=== PATIENT | female | born 1990 | race Caucasian/White ===

== ENCOUNTER 2020-09-18 00:01 | Emergency (ER) | payer BC, SELFPAY ==
[2020-09-18 00:02] VITALS: BP 145/94; PULSE 80; RESP 20; TEMP 37; O2SAT 100; BMI 28.1
--- NOTE | 2020-09-18 00:11 | XR_ITS ---
PROCEDURE: XR CHEST 2V CLINICAL HISTORY: soa COVID 19 positive, shortness of air with wheezing COMPARISON: No exams were available for comparison FINDINGS: The cardiomediastinal silhouette and pulmonary vascularity are within normal limits. The lungs are clear without infiltrates, suspicious nodules, or pleural effusions. No acute bony abnormalities. IMPRESSION: No acute findings. Dictated by: Dariel Quinteros MD 09/18/2020 07:04 Dariel Quinteros MD in [place] 09/18/2020 07:04
[2020-09-18 00:25] LABS: Chloride 102 mmol/L (98-107); Sodium 139 mmol/L (136-145)
[2020-09-18 00:26] LABS: Potassium 3.3 mmoL/L (3.5-5.1)
[2020-09-18 00:27] LABS: Basophils % 0.9 % (0.1-2.0); Eosinophils # 0.1 K/mm3 (0.0-0.4); Eosinophils % 1.9 % (0.1-12.0); Hematocrit 38.7 % (37.0-47.0); Hemoglobin 12.7 g/dL (12.2-16.2); Lymphocytes # 1.8 K/mm3 (0.7-4.5); Lymphocytes % 43.4 % (10-50); Mean Corpuscular HGB Conc 32.7 g/dL (31.8-35.4); Mean Corpuscular Volume 85.4 fl (81-99); Monocytes # 0.4 K/mm3 (0.1-1.0); Monocytes % 8.9 % (1.7-9.3); Neutrophils # 1.8 K/mm3 (1.8-7.8); Neutrophils % 44.9 % (37.0-80.0); Platelet Count 200 K/mm3 (142-424); Red Blood Count 4.53 M/mm3 (4.20-5.40); Red Cell Distribution Width 12.9 % (11.5-17.5); White Blood Count 4.1 K/mm3 (4.8-10.8)
[2020-09-18 00:28] LABS: Alanine Aminotransferase 22 U/L (12-78); Albumin Level 4.5 g/dl (3.5-5.0); Albumin/Globulin Ratio 1.6 (1.1-1.8); Alkaline Phosphatase 59 U/L (38-126); Anion Gap 9.3 mEq/L (5-15); Aspartate Amino Transferase 31 U/L (14-36); Bilirubin,Total 0.5 mg/dl (0.2-1.3); Blood Urea Nitrogen 11 mg/dl (7-17); Calcium 9.1 mg/dl (8.4-10.2); Carbon Dioxide 31 mmol/L (22.0-30.0); Creatinine Clearance Estimated 131 mL/min (50-200); Estimated Glomerular Filt Rate 84 ml/min (>60); GFR (African American) 101 ML/MIN (>60); Globulin 2.9 g/dL (1.3-3.2); Glucose 134 mg/dl (74-100); Total Protein,Serum 7.4 g/dl (6.3-8.2)
[2020-09-18 00:34] LABS: C-Reactive Protein 1.7 mg/L (0-4)
--- NOTE | 2020-09-18 00:38 | HMH.EDSOB ---
ED Disposition Clinical Impression: Asthma with exacerbation Qualifiers: Asthma severity: moderate Asthma persistence: unspecified Qualified Code(s): J45.901 - Unspecified asthma with (acute) exacerbation Disposition: Home, Self-Care Condition on Discharge: Good Instructions: DI for Shortness of Breath Additional Instructions: call pcp this am for follow up Referrals: Mukul Alfaro MD [Primary Care Provider] - - Critical Care Critical Care Time: No Attestation: On 09/18/20, the high probability of a clinically significant, sudden or life threatening deterioration of the following system(s) required my full and direct attention, intervention and personal management. The time I documented below is in addition to time spent performing reported procedures but includes the following listed in this critical care notation. Medical Decision Making - Medical Records Medical records reviewed: Yes: I reviewed the patient's medical records. - Jose Inquiry Pt receiving controlled substance: No Vital Signs: 09/18/20 00:02 09/18/20 01:17 09/18/20 01:28 Temperature 98.6 F Temperature Source Oral Pulse Rate [Right] 80 76 77 Respiratory Rate 20 16 16 Blood Pressure [Right Arm] 145/94 H 141/93 H 144/87 H Blood Pressure Mean [Right Arm] 111 109 106 Blood Pressure Source [Right Arm] Automatic Cuff Blood Pressure Position [Right Arm] Sitting 02 Sat by Pulse Oximetry 100 100 100 Oxygen Delivery Method Room Air Room Air Room Air 09/18/20 02:20 Temperature Temperature Source Pulse Rate [Right] 80 Respiratory Rate 16 Blood Pressure [Right Arm] 123/79 Blood Pressure Mean [Right Arm] 93 Blood Pressure Source [Right Arm] Blood Pressure Position [Right Arm] 02 Sat by Pulse Oximetry 99 Oxygen Delivery Method Room Air - Lab Data Lab results reviewed: Yes: I reviewed the patient's lab results. Lab Results 09/18/20 00:09: WBC 4.1 L, RBC 4.53, Hgb 12.7, Hct 38.7, MCV 85.4, MCH 28.0, MCHC 32.7, RDW 12.9, Plt Count 200, MPV 9.0, Neut % (Auto) 44.9, Lymph % (Auto) 43.4, Weld % (Auto) 8.9, Eos % (Auto) 1.9, Baso % (Auto) 0.9, Neut # (Auto) 1.8, Lymph # (Auto) 1.8, Weld # (Auto) 0.4, Eos # (Auto) 0.1, Baso # (Auto) 0.0 09/18/20 00:09: Sodium 139, Potassium 3.3 L, Chloride 102, Carbon Dioxide 31 H, Anion Gap 9.3, BUN 11, Creatinine 0.80, Estimated Creat Clear 131, Estimated GFR 84, Est GFR ( Amer) 101, Glucose 134 H, Calcium 9.1, Total Bilirubin 0.5, AST 31, ALT 22, Alkaline Phosphatase 59, C-Reactive Protein 1.7, Total Protein 7.4, Albumin 4.5, Globulin 2.9, Albumin/Globulin Ratio 1.6 09/18/20 00:09: Serum HCG, Qual Negative 09/18/20 00:09: SARS-CoV-2 IgG Ab (Rapid) Negative, SARS-CoV-2 IgM Ab (Rapid) Negative 09/18/20 00:09: ESR 15 Result diagrams: 09/18/20 00:09 09/18/20 00:09 Orders (Tests/Meds): ED MEDICATIONS Generic Name Dose Route Start Last Admin Trade Name Freq PRN Reason Stop Dose Admin Sodium Chloride 1,000 mls @ 999 mls/hr 09/18/20 00:15 09/18/20 00:14 Sod Chlor 0.9% 1000ml Bag IV 09/18/20 01:15 999 mls/hr .Q1H1M CIELO Administration Discontinued Medications Generic Name Dose Route Start Last Admin Trade Name Freq PRN Reason Stop Dose Admin Dexamethasone Sodium Phosphate 10 mg 09/18/20 00:11 09/18/20 00:14 Dexamethasone 4mg/Ml 1ml Vial IV 09/18/20 00:12 10 mg ONCE ONE Administration Epinephrine HCl 0.3 mg 09/18/20 01:12 09/18/20 01:14 Epinephrine 1 Mg/Ml Ampul SQ 09/18/20 01:13 0.3 mg ONCE ONE Administration ORDERS Category Date Time Status XR chest 2V Stat Exams 09/18/20 00:11 Taken XR soft tissue neck Stat Exams 09/18/20 00:41 Taken Full Resp Panel w/COVID ([facility]) Routine Lab 09/18/20 00:09 Received - Radiology Data #1 Image(s): Chest, Other (soft tissue neck ) Image Reviewed: Yes I reviewed the patient's radiology image Preliminary Findings: Abnormal (sl changes soft tissue neck ) - Reevaluation(s) Time: 03:07 Reevalua
--- NOTE | 2020-09-18 00:41 | XR_ITS ---
PROCEDURE: XR SOFT TISSUE NECK CLINICAL INDICATION: wheezing COMPARISON: No exams were available for comparison FINDINGS: Normal alignment. No prevertebral soft tissue swelling or subglottic narrowing. The epiglottis has an unremarkable appearance. IMPRESSION: Negative soft tissues neck. Dictated by: Dariel Quinteros MD 09/18/2020 07:03 Dariel Quinteros MD in [place] 09/18/2020 07:03
[2020-09-18 00:43] LABS: HCG Qualitative, Serum Negative (Negative)
[2020-09-18 00:55] LABS: Coronavirus 19 IgG Antibody Negative (Negative); Coronavirus 19 IgM Antibody Negative (Negative); Erythrocyte Sedimentation Rate 15 mm/hr (0-20)
--- NOTE | 2020-09-18 01:08 | PC.NURSE ---
Josué, Pharmacist recommends epi 0.3-0.5 of 1:1000 SQ
[2020-09-18 01:17] VITALS: BP 141/93; PULSE 76; RESP 16; O2SAT 100
[2020-09-18 01:28] VITALS: BP 144/87; PULSE 77; RESP 16; O2SAT 100
--- NOTE | 2020-09-18 01:29 | PC.NURSE ---
Post SQ Epi Pt continues to have inspiratory and exspiratory wheezing, it has inproved greatly, but still auscultated.
[2020-09-18 01:43] LABS: Adenovirus,PCR Not Detected (NotDetected); Bordetella Pertussis Not Detected (NotDetected); Chlamydophila Pneumoniae, PCR Not Detected (NotDetected); Coronavirus 229E Not Detected (NotDetected); Coronavirus NL63 Not Detected (NotDetected); Coronavirus OC43 Not Detected (NotDetected); Coronovirus HKU1,PCR Not Detected (NotDetected); Human Metapneumovirus Not Detected (NotDetected); Influenza A, PCR Not Detected (NotDetected); Influenza AH1, 2009 Not Detected (NotDetected); Influenza AH1, PCR Not Detected (NotDetected); Influenza AH3,PCR Not Detected (NotDetected); Influenza B, PCR Not Detected (NotDetected); Mycoplasma Pneumoniae, PCR Not Detected (NotDetected); Parainfluenza 1, PCR Not Detected (NotDetected); Parainfluenza 2, PCR Not Detected (NotDetected); Parainfluenza 3, PCR Not Detected (NotDetected); Parainfluenza 4, PCR Not Detected (NotDetected); Respiratory Syncytial Virus Not Detected (NotDetected); Rhinovirus/Enterovirus Not Detected (NotDetected)
--- NOTE | 2020-09-18 02:19 | PC.NURSE ---
On Admission pt could only whisper, she is now able to speak normal.
[2020-09-18 02:20] VITALS: BP 123/79; PULSE 80; RESP 16; O2SAT 99
[2020-09-18 03:13] VITALS: BP 126/74; PULSE 80; RESP 16; TEMP 37; O2SAT 100
[2020-09-18 03:25] LABS: Coronavirus 19, PCR Detected (NotDetected)
--- NOTE | 2020-09-18 03:29 | PC.NURSE ---
Pt was contacted and notified of Positive Covid test and was instructed to self quarantine
== END 2020-09-18 03:16 | disposition home or self-care (01) ==
PROVIDERS: Emergency Provider Emergency Medicine; PCP Family Medicine
DX: J45.901 Unspecified asthma with (acute) exacerbation (principal); U07.1 COVID-19
CPT/HCPCS: 70360; 71046; 80053; 84703; 85025; 85651; 86140; 86328; 87581; 87633; 87798; 96365; 96372; 96375; 99283

== ENCOUNTER → 2020-10-19 12:00 | Outpatient (CLI) | payer BC, SELFPAY ==
--- NOTE | 2020-10-19 12:07 | XR_ITS ---
PROCEDURE: XR CHEST 2V Referring Doctor: Yasmin Menendez Patient Age:29Y CLINICAL HISTORY: SOB, COVID-19 positive 1 month ago COMPARISON: CR XR CHEST 2V from 09/18/2020 FINDINGS: PA and lateral chest performed today with no change when compared to 09/18/2020 the the cardiomediastinal silhouette and pulmonary vascularity are within normal limits. The lungs are clear without infiltrates, suspicious nodules, or pleural effusions. No acute bony abnormalities. IMPRESSION: Lungs clear. Nothing definitely acute. No significant new findings Dictated by: Scar Dejesus MD 10/19/2020 13:10 Scar Dejesus MD in [place] 10/19/2020 13:10
== END ==
PROVIDERS: PCP Nurse Practitioner Family; Visit Provider Nurse Practitioner Family
DX: R06.02 Shortness of breath (principal); U07.1 COVID-19
CPT/HCPCS: 71046

== ENCOUNTER → 2021-12-25 08:30 | Outpatient (CLI) | payer BC, SELFPAY ==
--- NOTE | 2021-12-25 08:35 | US_ITS ---
FINAL REPORT CLINICAL HISTORY: NNAUSA, DYSPEPSIA, UPER ABD. PAIN FINDINGS: Sonographic images of the abdomen were obtained. The liver has an unremarkable appearance with normal echogenicity. The gallbladder has an unremarkable appearance without evidence of gallstones. There is no evidence of biliary ductal dilatation. The common hepatic duct measures 2 mm, which is within normal limits. Limited images of the pancreas are unremarkable. The spleen size is normal. The right kidney measures 10.3 cm in length. The left kidney measures 9.8 cm in length. There is normal renal echogenicity. There is no evidence of hydronephrosis. The aorta has an unremarkable appearance. Limited images of the inferior vena cava are unremarkable. IMPRESSION: Unremarkable abdominal ultrasound with no acute abnormality identified. Reviewed, Interpreted and Dictated by Gordon Dorsey III, MD Transcribed by Joie Hurtado Authenticated by Gordon Dorsey III, MD on 12/25/2021 11:08:15 AM [facility]
== END ==
PROVIDERS: PCP Nurse Practitioner Family; Visit Provider Nurse Practitioner Family
DX: R10.10 Upper abdominal pain, unspecified (principal); R11.0 Nausea; R10.13 Epigastric pain
CPT/HCPCS: 76700

== ENCOUNTER 2022-08-31 11:55 | Emergency (ER) | payer BC, SELFPAY ==
[2022-08-31 13:46] VITALS: BP 156/105; PULSE 85; RESP 17; TEMP 36.7; O2SAT 100; BMI 28.3
[2022-08-31 14:04] VITALS: BP 152/98; PULSE 103; RESP 20; O2SAT 100
--- NOTE | 2022-08-31 14:23 | PC.NURSE ---
ED MD AT BEDSIDE FOR EVALUATION
--- NOTE | 2022-08-31 14:24 | XR_ITS ---
PROCEDURE INFORMATION: Exam: XR Chest Exam date and time: 08/31/2022 2:39 PM Age: 31 years old Clinical indication: Cough and shortness of breath; Additional info: Conernfor pneumonia TECHNIQUE: Imaging protocol: Radiologic exam of the chest. Views: 1 view. COMPARISON: CR XR CHEST 2V 10/19/2020 12:09 PM FINDINGS: Lungs: There is an indeterminate opacity projected over the right upper lobe. Differential considerations include but not limited to developing pneumonia focal lesion or structure overlap. Evaluation with chest CT is recommended for better evaluation. Pleural spaces: Unremarkable. No pleural effusion. No pneumothorax. Heart/Mediastinum: Unremarkable. No cardiomegaly. Bones/joints: Unremarkable. IMPRESSION: There is an indeterminate opacity projected over the right upper lobe. Differential considerations include but not limited to developing pneumonia focal lesion or structure overlap. Evaluation with chest CT is recommended for better evaluation.
--- NOTE | 2022-08-31 14:28 | PC.NURSE ---
XR AT BEDSIDE
[2022-08-31 14:30] VITALS: BP 151/91; PULSE 102; RESP 19; O2SAT 100
[2022-08-31 15:00] VITALS: BP 140/96; PULSE 91; RESP 16; O2SAT 99
[2022-08-31 15:30] VITALS: BP 144/98; PULSE 98; RESP 16; O2SAT 100
[2022-08-31 15:33] LABS: HCG Qualitative, Serum Negative (Negative)
[2022-08-31 16:34] VITALS: BP 135/89; PULSE 80; RESP 17; TEMP 36.7; O2SAT 99
--- NOTE | 2022-08-31 20:52 | HMH.EDGENADL ---
Discharge Plan Disposition Patient Disposition: Home, Self-Care Condition: Fair Prescriptions Prescriptions: New doxycycline hyclate 100 mg tablet 100 mg PO BID 5 Days Qty: 10 0RF Referrals Follow up/Referrals: Yasmin Menendez APRN [Primary Care Provider] - See instructions Activity Restrictions/Add. Instructions Additional Instructions/Restrictions: Recommend that you follow-up with your PCP in order to get a repeat chest x-ray to ensure that this right upper lobe area clears otherwise it will need a CT to evaluate. Clinical Impressions Clinical Impression: Asthma with exacerbation, Pneumonia Instructions Patient Instructions: DI for Pneumonia -- Adult Discharge ED Provider: Kiran Shahid General Adult HPI General Chief complaint: Upper Respiratory Infection Stated complaint: Cough, congestion, SOA, BA, Chills Time Seen by Provider: 08/31/22 12:10 Mode of Arrival: Ambulatory Limitations: No Limitations Description of Symptoms (Recalled from ER Triage Doc. by RN): PT +FLU, HAS ASTHMA. REPORTS COUGH AND SHORTNESS OF BREATH History of Present Illness HPI narrative: Patient is a 31-year-old female who presents with concern for influenza. She says she was diagnosed with the flu 5 days ago. She says that she has been doing okay but she has a history of asthma and felt like she was more wheezy and her cough was getting worse so she wanted to come in for evaluation. She also says that she is little bit more short of breath. She has not been having any increase in sputum production. Denies any chest pain. Denies abdominal pain. Denies any nausea or vomiting. Related Data Previous Rx's Medication Instructions Recorded doxycycline hyclate 100 mg tablet 100 mg PO BID 5 days #10 tabs 08/31/22 Allergies Allergy/AdvReac Type Severity Reaction Status Date / Time pneumococcal vaccine Allergy Severe Unknown Verified 09/18/20 00:45 [From PNEUMOVAX 23] allergy reaction morphine [MORPHINE] Allergy Mild Verified 09/18/20 00:45 cefdinir Allergy Verified 09/18/20 00:45 Sulfa (Sulfonamide Allergy Verified 09/18/20 00:45 Antibiotics) PFSH PFSH Social History Smoking Status: Never smoker alcohol intake: never current occupational status: unemployed Travel in the last 8 weeks: None ROS Obtained: Yes All systems reviewed & no additional complaints except as documented A 14 point review of system was obtained and otherwise negative except per HPI Physical Exam General General appearance: alert and in no apparent distress Head Head exam: atraumatic, normocephalic and normal inspection Eye Eye exam: Present normal appearance, PERRL and EOMI ENT ENT exam: Present normal exam, normal oropharynx, mucous membranes moist, TM's normal bilaterally and normal external ear exam Neck Neck exam: Present normal inspection, full ROM and trachea midline; Absent meningismus or lymphadenopathy Chest Chest inspection: Present normal inspection and symmetric chest wall rise; Absent tenderness Respiratory Respiratory exam: Present normal lung sounds bilaterally and wheezes; Absent respiratory distress Expanded Respiratory Exam Location: Left: wheezes, Right: wheezes, Upper: wheezes and Lower: wheezes Cardiovascular Cardiovascular exam: Present regular rate and normal rhythm; Absent JVD Abdominal Exam Abdominal exam: Present soft and normal bowel sounds; Absent distention, tenderness or guarding Extremities Exam Extremities exam: Present normal inspection, full ROM and normal capillary refill; Absent calf tenderness Back Exam Back exam: Present normal inspection; Absent tenderness Neurological Exam Neurological exam: Present alert and oriented X3 Psychiatric Psychiatric exam: Present normal affect and normal mood Skin Skin exam: Present warm, dry, intact and normal color Lymphatic Lymphatic Findings: no adenopathy Medical Decision Making Medical Records Medical records reviewed: Yes I rev
== END 2022-08-31 16:40 | disposition home or self-care (01) ==
LOC: UTC 11:58 → ER 12:24
PROVIDERS: Emergency Provider Student in an Organized Health Care Education/Training Program; PCP Nurse Practitioner Family
DX: J45.901 Unspecified asthma with (acute) exacerbation (principal); J18.9 Pneumonia, unspecified organism; Z79.899 Other long term (current) drug therapy
CPT/HCPCS: 71045; 84703; 94640; 96365; 96375; 99284; J3475

== ENCOUNTER → 2022-09-16 10:17 | Outpatient (CLI) | payer BC, SELFPAY ==
--- NOTE | 2022-09-16 10:22 | XR_ITS ---
FINAL REPORT CLINICAL HISTORY: PNEUMONIA OF RT UPPER LOBE, sob, cough COMPARISON: 08/31/2022 FINDINGS: 2 views of the chest were obtained . The heart is normal in size. The mediastinum is within normal limits. There has been interval resolution of right upper lobe pneumonia. There is no pneumothorax. Osseous structures are unremarkable. IMPRESSION: No acute cardiopulmonary process. Reviewed, Interpreted and Dictated by Juanito Calderon MD Transcribed by Sherron Pagan Authenticated and [facility]
== END ==
PROVIDERS: PCP Nurse Practitioner Family; Visit Provider Nurse Practitioner Family
DX: J18.9 Pneumonia, unspecified organism (principal)
CPT/HCPCS: 71046

== ENCOUNTER 2023-07-10 16:55 | Emergency (ER) | payer BC, SELFPAY ==
[2023-07-10 16:57] VITALS: BP 141/91; PULSE 68; RESP 16; TEMP 36.7; O2SAT 100; BMI 25.5
[2023-07-10 17:15] VITALS: BP 140/97; PULSE 76; RESP 18; TEMP 36.7; O2SAT 99
--- NOTE | 2023-07-10 17:55 | PC.NURSE ---
Dr. Cm at [facility] for pt eval
[2023-07-10 17:57] LABS: Coronavirus 19, PCR Not Detected (NotDetected); Influenza A, PCR Not Detected (NotDetected); Influenza B, PCR Not Detected (NotDetected)
--- NOTE | 2023-07-10 17:59 | XR_ITS ---
PROCEDURE INFORMATION: Exam: XR Chest Exam date and time: 07/10/2023 6:33 PM Age: 32 years old Clinical indication: Cough TECHNIQUE: Imaging protocol: Radiologic exam of the chest. Views: 2 views. COMPARISON: CR XR CHEST 2V 09/16/2022 10:35 AM FINDINGS: Lungs: Lungs are clear. No consolidation. Pleural spaces: No pleural effusion. No pneumothorax. Heart/Mediastinum: Cardiomediastinal silhouette is normal. Bones/joints: No acute abnormality. IMPRESSION: No acute cardiopulmonary disease.
--- NOTE | 2023-07-10 17:59 | HMH.EDGENADL ---
Discharge Plan Disposition Patient Disposition: Home, Self-Care Chief Complaint: Upper Respiratory Infection Prescriptions Prescriptions: No Action doxycycline hyclate 100 mg tablet 100 mg PO BID 5 Days Qty: 10 0RF Referrals Follow up/Referrals: Yasmin Menendez APRN [Primary Care Provider] - See instructions Clinical Impressions Clinical Impression: Laryngitis, Acute viral syndrome, Asthma exacerbation Discharge ED Provider: Chau Cm General Adult HPI General Chief complaint: Upper Respiratory Infection Stated complaint: Abd Pain Bronchitis Time Seen by Provider: 07/10/23 17:45 History of Present Illness HPI narrative: Patient is a 32-year-old female with past medical history of asthma who presents emergency department for evaluation of cough and shortness of breath. Patient has had waxing waning symptoms for last 2 weeks however has been particularly worse over the last 48 hours, refractory to at home inhaler. Patient has lost her voice. No other acute complaints at this time. Related Data Previous Rx's Medication Instructions Recorded doxycycline hyclate 100 mg tablet 100 mg PO BID 5 days #10 tabs 08/31/22 Allergies Allergy/AdvReac Type Severity Reaction Status Date / Time pneumococcal vaccine Allergy Severe Unknown Verified 09/18/20 00:45 [From PNEUMOVAX 23] allergy reaction morphine [MORPHINE] Allergy Mild Verified 09/18/20 00:45 cefdinir Allergy Verified 09/18/20 00:45 Sulfa (Sulfonamide Allergy Verified 09/18/20 00:45 Antibiotics) [facility] Disclaimer: The information contained in this section may have been updated after the patient was seen, as this information can be updated by other users. Social History Smoking Status: Never smoker alcohol intake: never current occupational status: unemployed Travel in the last 8 weeks: None ROS Obtained: Yes Systems reviewed as appropriate & no additional complaints except as documented Physical Exam General General appearance: alert and in no apparent distress Head Head exam: atraumatic and normocephalic Eye Eye exam: Present PERRL and EOMI ENT ENT exam: Present mucous membranes moist Neck Neck exam: Present normal inspection Chest Chest inspection: Present normal inspection and symmetric chest wall rise Respiratory Respiratory exam: Present other (Scattered expiratory wheezing); Absent respiratory distress Cardiovascular Cardiovascular exam: Present regular rate and normal rhythm Abdominal Exam Abdominal exam: Present soft Extremities Exam Extremities exam: Present normal inspection Neurological Exam Neurological exam: Present alert Psychiatric Psychiatric exam: Present normal affect Skin Skin exam: Present warm and dry Medical Decision Making Jose Inquiry Pt receiving controlled substance: No Vital Signs: 07/10/23 17:15 07/10/23 16:57 07/10/23 18:03 Temperature 98.1 F 98.0 F Temperature Source Oral Oral Pulse Rate 76 71 Pulse Rate [Left] 68 Respiratory Rate 18 16 Blood Pressure 140/97 H 141/91 H Blood Pressure [Right Arm] 141/91 H Blood Pressure Mean 108 Blood Pressure Mean [Right Arm] 107 Blood Pressure Source Automatic Cuff 02 Sat by Pulse Oximetry 99 100 97 Oxygen Delivery Method Room Air 07/10/23 18:26 Temperature Temperature Source Pulse Rate 69 Pulse Rate [Left] Respiratory Rate Blood Pressure 135/90 Blood Pressure [Right Arm] Blood Pressure Mean 108 Blood Pressure Mean [Right Arm] Blood Pressure Source 02 Sat by Pulse Oximetry 98 Oxygen Delivery Method Lab Data Lab Results 07/10/23 17:11: SARS-CoV-2 (PCR) Not detected, Influenza A Untype (PCR) Not detected, Influenza Type B (PCR) Not detected Orders (Tests/Meds): ED MEDICATIONS Discontinued Medications Generic Name Dose Route Start Last Admin Trade Name Freq PRN Reason Stop Dose Admin Albuterol/Ipratropium 6 ml 07/10/23 17:58 07/10/23 18:29 Ip
[2023-07-10 18:03] VITALS: BP 141/91; PULSE 71; O2SAT 97
[2023-07-10 18:26] VITALS: BP 135/90; PULSE 69; O2SAT 98
[2023-07-10 19:41] VITALS: BP 102/54; PULSE 71; RESP 15; TEMP 36.5; O2SAT 98
== END 2023-07-10 19:44 | disposition home or self-care (01) ==
PROVIDERS: Emergency Provider Emergency Medicine; PCP Nurse Practitioner Family
DX: J45.901 Unspecified asthma with (acute) exacerbation (principal); J04.0 Acute laryngitis; B34.9 Viral infection, unspecified
CPT/HCPCS: 71046; 87636; 99284

== ENCOUNTER 2023-09-21 10:16 | Emergency (ER) | payer BC, SELFPAY ==
[2023-09-21 11:20] VITALS: BP 146/99; PULSE 100; RESP 18; TEMP 37.2; O2SAT 98; BMI 25.5
--- NOTE | 2023-09-21 11:22 | EXP.UTC ---
Discharge Plan Disposition Patient Disposition: Home, Self-Care Condition: Good Prescriptions Prescriptions: New amoxicillin [amoxicillin] 875 mg tablet 875 mg PO Q12H Qty: 20 0RF [id number] [Bromfed DM] 2-30-10 mg/5 mL Syrup 5 ml PO Q6H PRN (Reason: Cough) Qty: 240 0RF methylprednisolone 4 mg Tablets,Dose Pack 4 mg PO DIRECTED Qty: 21 0RF No Action albuterol sulfate 90 mcg/actuation aerosol powdr breath activated 2 inh inhalation Q4-6H PRN (Reason: Wheezing) albuterol sulfate 2.5 mg/0.5 mL solution for nebulization 5 mg inhalation Q6H PRN (Reason: Wheezing) levocetirizine [Xyzal] 5 mg tablet 5 mg PO DAILY Mucinex DM 30-600 mg tablet extended release 12 hr 1 tab PO Q12H fluticasone propionate [Flonase Allergy Relief] 50 mcg/actuation spray,suspension 1 spray intranasal DAILY PRN Rx Instructions: administer into each nostril Referrals Follow up/Referrals: Yasmin Menendez APRN [Primary Care Provider] - See instructions Activity Restrictions/Add. Instructions Additional Instructions/Restrictions: Drink plenty of fluids. Take tylenol or ibuprofen for pain or fever. Take the medications as directed. Follow up with your regular doctor. GO TO THE ER FOR ANY WORSENING SYMPTOMS Clinical Impressions Clinical Impression: Acute bronchitis, Sinusitis Instructions Patient Instructions: DI for Sinusitis, Sinusitis, Acute Bronchitis, DI for Acute Bronchitis Discharge ED Provider: Mitesh Boothe [facility] General Stated complaint: cough congestion vomiting chest tightness Time Seen by Provider: 09/21/23 11:22 Related Data Home Medications Medication Instructions Recorded Confirmed albuterol sulfate 2.5 mg/0.5 mL 5 mg inhalation Q6H PRN Wheezing 07/16/23 09/21/23 solution for nebulization albuterol sulfate 90 mcg/actuation 2 inh inhalation Q4-6H PRN Wheezing 07/16/23 09/21/23 breath activated powder inhaler dextromethorphan-guaifenesin 30 1 tab PO Q12H 07/16/23 09/21/23 mg-600 mg tablet extended [id number] hr (Mucinex DM) fluticasone propionate 50 1 spray intranasal DAILY PRN 07/16/23 07/16/23 mcg/actuation nasal spray,suspension (Flonase Allergy Relief) levocetirizine 5 mg tablet (Xyzal) 5 mg PO DAILY 07/16/23 07/16/23 Previous Rx's Medication Instructions Recorded amoxicillin 875 mg tablet 875 mg PO Q12H #20 tabs 09/21/23 [id number] 5 ml PO Q6H PRN Cough #240 mL 09/21/23 2 mg-30 mg-10 mg/5 mL oral syrup (Bromfed DM) methylprednisolone 4 mg tablets in 4 mg PO DIRECTED #21 tabs 09/21/23 a dose pack Allergies Allergy/AdvReac Type Severity Reaction Status Date / Time pneumococcal vaccine Allergy Severe Unknown Verified 09/21/23 11:40 [From PNEUMOVAX ] allergy reaction morphine [MORPHINE] Allergy Mild Verified 09/21/23 11:40 cefdinir Allergy Verified 09/21/23 11:40 Sulfa (Sulfonamide Allergy Verified 09/21/23 11:40 Antibiotics) [facility] Disclaimer: The information contained in this section may have been updated after the patient was seen, as this information can be updated by other users. Social History Smoking Status: Never smoker alcohol intake: never current occupational status: unemployed Travel in the last 8 weeks: None ROS Obtained: Yes All systems reviewed & no additional complaints except as documented Constitutional Constitutional: Reports poor appetite Eyes Eyes: Reports system reviewed and no additional complaints, except as documented ENT Ears, Nose, Mouth, and Throat: Reports as per HPI Cardiovascular Cardiovascular: Reports system reviewed and no additional complaints, except as documented and Denies chest pain Respiratory Respiratory: Denies shortness of breath, Reports chest congestion, Reports cough, Denies stridor and Denies wheezing Gastrointestina
[2023-09-21 11:54] VITALS: BP 146/99; PULSE 100; RESP 18; TEMP 37.2; O2SAT 98
== END 2023-09-21 11:54 | disposition home or self-care (01) ==
PROVIDERS: Emergency Provider Nurse Practitioner Family; PCP Nurse Practitioner Family
DX: J20.9 Acute bronchitis, unspecified (principal); J01.90 Acute sinusitis, unspecified; R11.2 Nausea with vomiting, unspecified; R07.89 Other chest pain; R05.9 Cough, unspecified; R09.89 Other specified symptoms and signs involving the circulatory and respiratory systems
CPT/HCPCS: 99204; 99212; G0463

== ENCOUNTER 2023-10-02 12:47 | Emergency (ER) | payer BC, SELFPAY ==
[2023-10-02] VITALS (10 sets, daily range): BP systolic 117–147; BP diastolic 52–87; PULSE 60–88; RESP 20; TEMP 36.8; O2SAT 97–100; BMI 27.4
--- NOTE | 2023-10-02 13:00 | PC.NURSE ---
pt was given a pillow laying in bed with at
--- NOTE | 2023-10-02 13:07 | HMH.EDGENADL ---
Discharge Plan Disposition Patient Disposition: Home, Self-Care Prescriptions Prescriptions: New promethazine 25 mg tablet 25 mg PO Q6H PRN (Reason: nausea and vomiting) Qty: 20 0RF No Action dexamethasone sodium phosphate 4 mg/mL solution 4 mg IM ONCE Qty: 1 0RF guaifenesin [Mucinex] 600 mg tablet extended release 12hr 600 mg PO BID azithromycin [Zithromax Z-Teofilo] 250 mg tablet See Rx Instructions PO .COMPLEX Qty: 6 0RF Rx Instructions: For 250 mg dose pack: take 500 mg today (day 1), then 250 mg for 4 days (days 2-5) PO prednisone 20 mg tablet 20 mg PO BID 5 Days Qty: 10 0RF albuterol sulfate 2.5 mg/0.5 mL solution for nebulization 5 mg inhalation Q6H PRN (Reason: Wheezing) Qty: 30 1RF Xulane 150-35 mcg/24 hr patch weekly 1 patch transdermal WEEKLY Qty: 9 2RF Rx Instructions: apply once weekly for 3 weeks of a 4-week cycle albuterol sulfate 90 mcg/actuation aerosol powdr breath activated 2 inh inhalation Q4-6H PRN (Reason: Wheezing) Qty: 1 2RF levocetirizine [Xyzal] 5 mg tablet 5 mg PO DAILY fluticasone propionate [Flonase Allergy Relief] 50 mcg/actuation spray,suspension 1 spray intranasal DAILY PRN Rx Instructions: administer into each nostril amoxicillin [amoxicillin] 875 mg tablet 875 mg PO Q12H Qty: 20 0RF rtyksfqhqhvfekg-uhsboakuv-JB [Bromfed DM] 2-30-10 mg/5 mL Syrup 5 ml PO Q6H PRN (Reason: Cough) Qty: 240 0RF methylprednisolone 4 mg Tablets,Dose Pack 4 mg PO DIRECTED Qty: 21 0RF Referrals Follow up/Referrals: Yasmin Menendez APRN [Primary Care Provider] - See instructions Clinical Impressions Clinical Impression: Acute epigastric pain, Nausea vomiting and diarrhea Instructions Patient Instructions: DI for Diarrhea and Traveler's Diarrhea -- Adult, DI for Diarrhea and Traveler's Diarrhea -- Child, DI for Nausea -- Adult, DI for Nausea -- Child Discharge ED Provider: Rashel Akhtar General Adult HPI <Rebecca Caicedo DO - Last Filed: 10/02/23 15:13> General Chief complaint: Nausea/Vomiting/Diarrhea Stated complaint: vomiting Time Seen by Provider: 10/02/23 12:50 History of Present Illness HPI narrative: This patient is a 32-year-old female who denies significant past medical history presenting to the emergency department for evaluation with concern for nausea, vomiting, and diarrhea since last night. She states that it started approximately 4 hours after eating dinner out. Emesis is nonbloody and nonbilious, and diarrhea is nonbloody. States she is concerned that she is getting dehydrated because she is having muscle cramping. She reports some epigastric/upper abdominal pain, but she attributes this to having a cough over the last several weeks. She denies any fevers, chills, chest pain, shortness of breath, dysuria, polyuria, or abnormal vaginal discharge. She took Zofran at home without good improvement. Related Data Home Medications Medication Instructions Recorded Confirmed fluticasone propionate 50 1 spray intranasal DAILY PRN 07/16/23 09/24/23 mcg/actuation nasal spray,suspension (Flonase Allergy Relief) levocetirizine 5 mg tablet (Xyzal) 5 mg PO DAILY 07/16/23 09/24/23 guaifenesin 600 mg tablet, 600 mg PO BID 09/24/23 09/24/23 extended release 12 hr (Mucinex) Previous Rx's Medication Instructions Recorded amoxicillin 875 mg tablet 875 mg PO Q12H #20 tabs 09/21/23 lajnczmhdrgikbq-qrlcnmryvhfogtq-GN 5 ml PO Q6H PRN Cough #240 mL 09/21/23 2 mg-30 mg-10 mg/5 mL oral syrup (Bromfed DM) methylprednisolone 4 mg tablets in 4 mg PO DIRECTED #21 tabs 09/21/23 a dose pack albuterol sulfate 2.5 mg/0.5 mL 5 mg inhalation Q6H PRN Wheezing 09/24/23 solution for nebulization #30 ea albuterol sulfate 90 mcg/actuation 2 inh inhalation Q4-6H PRN 09/24/23 breath activated powder inhaler Wheezing #1 ea azithromycin 250 mg tablet See Rx Instructions PO .COMPLEX #6 09/24/23 (Zithromax Z-Pa
[2023-10-02 14:01] LABS: Basophils # 0.1 K/mm3 (0-0.2); Basophils % 0.5 % (0.1-2.0); Eosinophils # 0.1 K/mm3 (0.0-0.4); Eosinophils % 0.8 % (0.1-12.0); Hematocrit 42.1 % (37.0-47.0); Hemoglobin 14.4 g/dL (12.2-16.2); Lymphocytes # 2.8 K/mm3 (0.7-4.5); Lymphocytes % 15.9 % (10-50); Mean Corpuscular HGB Conc 34.2 g/dL (31.8-35.4); Mean Corpuscular Hemoglobin 28.9 pg (27.0-31.2); Mean Corpuscular Volume 84.5 fl (81-99); Mean Platelet Volume 8.7 fl (7.4-10.4); Monocytes # 0.6 K/mm3 (0.1-1.0); Monocytes % 3.4 % (1.7-9.3); Neutrophils # 13.8 K/mm3 (1.8-7.8); Neutrophils % 79.4 % (37.0-80.0); Platelet Count 284 K/mm3 (142-424); Red Blood Count 4.98 M/mm3 (4.20-5.40); Red Cell Distribution Width 13.2 % (11.5-17.5); White Blood Count 17.4 K/mm3 (4.8-10.8)
[2023-10-02 14:10] LABS: MANUAL DIFFERENTIAL MANUAL DIFFERENTIAL (MANUAL DIFF)
[2023-10-02 14:15] LABS: Alanine Aminotransferase 28 U/L (12-78); Albumin Level 4.9 g/dl (3.5-5.0); Albumin/Globulin Ratio 1.4 (1.1-1.8); Alkaline Phosphatase 54 U/L (38-126); Anion Gap 11.8 mEq/L (5-15); Aspartate Amino Transferase 36 U/L (14-36); Blood Urea Nitrogen 10 mg/dl (7-17); Calcium 8.9 mg/dl (8.4-10.2); Carbon Dioxide 27 mmol/L (22.0-30.0); Chloride 100 mmol/L (98-107); Estimated Glomerular Filt Rate 82 ml/min (>60); GFR (African American) 99 ML/MIN (>60); Globulin 3.6 g/dL (1.3-3.2); Glucose 107 mg/dl (74-100); Lipase 147 U/L (23-300); Potassium 3.8 mmoL/L (3.5-5.1); Sodium 135 mmol/L (136-145); Total Protein,Serum 8.5 g/dl (6.3-8.2)
[2023-10-02 14:24] LABS: Microscopic, Urine URINE MICROSCOPIC (MICROSCOPIC)
[2023-10-02 14:26] LABS: Appearance,Urine CLEAR (Clear); Bilirubin,Urine Negative (Negative); Blood, Urine Negative (Negative); Color,Urine YELLOW (Yellow); Glucose,Urine (UA) Negative (Negative); Ketones,Urine 1+ (Negative); Leukocyte Esterase,Urine Negative (Negative); Nitrate,Urine Negative (Negative); PH,Urine 7.5 (5.0-8.5); Protein,Urine Negative (Negative); Urobilinogen,Urine 0.2 EU/dl (0.2)
[2023-10-02 14:29] LABS: HCG Qualitative, Serum Negative (Negative)
--- NOTE | 2023-10-02 14:30 | CT_ITS ---
FINAL REPORT TECHNIQUE: After the administration of intravenous contrast, axial images were obtained through the abdomen and pelvis by computed tomography. The study was performed with techniques to keep radiation dose as low as reasonably achievable, (ALARA). Individual dose reduction techniques using automated exposure control or adjustment of mA and/or kV according to the patient's size were employed. CLINICAL HISTORY: epigastric/LUQ pain/N/V COMPARISON: None FINDINGS: Abdomen: The lung bases are clear. The liver parenchyma is homogeneous. The gallbladder is present. The spleen, pancreas, adrenals and kidneys appear unremarkable. The aorta is normal in caliber. There is no free fluid or adenopathy. Pelvis: The appendix is not identified. The urinary bladder is incompletely distended. The uterus is anteverted. There is no free fluid or adenopathy. IMPRESSION: No acute intra-abdominal process. Reviewed, Interpreted and Dictated by Duc Bertrand MD Transcribed by Jessica Gaines Authenticated and [facility]
[2023-10-02 14:37] LABS: Lymphocytes % 19 % (10-50); Monocytes % 3 % (2-9); Neutrophils % 76 % (42-76); Platelet Estimate Normal; RBC Morphology Normal; Total Cells Counted 100
[2023-10-02 15:25] LABS: Bacteria,Urine Trace /lpf; Squamous Epithelial Cell,Urine Occasional #/hpf (0-5); WBC,Urine Occasional #/hpf (0-3)
--- NOTE | 2023-10-02 16:34 | PC.NURSE ---
call made to radiology for scan results, trade show specialist reports scan is waiting to be read .
--- NOTE | 2023-10-02 17:10 | PC.NURSE ---
rounded on pt no needs at this time,call light at bs
== END 2023-10-02 17:59 | disposition home or self-care (01) ==
PROVIDERS: Emergency Medicine; Emergency Provider Emergency Medicine; PCP Nurse Practitioner Family
DX: R10.13 Epigastric pain (principal); R11.2 Nausea with vomiting, unspecified; R19.7 Diarrhea, unspecified
CPT/HCPCS: 74177; 80053; 81001; 83690; 84703; 85007; 85025; 96361; 96374; 96375; 99285; J0131; J2405; Q9967

== ENCOUNTER 2024-02-11 16:15 | Outpatient (CLI) | payer BC, SELFPAY ==
--- NOTE | 2024-02-11 16:19 | XR_ITS ---
FINAL REPORT CLINICAL HISTORY: left thumb injury, decreased ROM COMPARISON: None FINDINGS: 2 views of the left thumb were obtained. There is no acute fracture or dislocation. The joints are unremarkable. Tissues are unremarkable. IMPRESSION: No acute bony abnormality. Reviewed, Interpreted and Dictated by Duc Bertrand MD Transcribed by RUTH Solis Authenticated and [facility]
== END 2024-02-11 23:59 | disposition home or self-care (01) ==
LOC: RAD 16:15
PROVIDERS: PCP Nurse Practitioner Family; Visit Provider Nurse Practitioner Family
DX: S69.92XA Unspecified injury of left wrist, hand and finger(s), initial encounter (principal); M25.642 Stiffness of left hand, not elsewhere classified
CPT/HCPCS: 73140

== ENCOUNTER 2024-08-22 08:36 | Emergency (ER) | payer BC, SELFPAY ==
[2024-08-22 08:49] VITALS: BP 163/93; PULSE 82; RESP 18; TEMP 36.8; O2SAT 97; BMI 26.9
--- NOTE | 2024-08-22 08:58 | EXP.UTC ---
Discharge Plan Disposition Patient Disposition: Home, Self-Care Condition: Good Prescriptions Prescriptions: New zvbbqotmbcvgctk-ftajquept-DR [Bromfed DM] 2-30-10 mg/5 mL Syrup 5 ml PO Q6H PRN (Reason: Cough) Qty: 240 0RF azithromycin [Zithromax] 250 mg tablet 250 mg PO UD DOSE PK Qty: 6 0RF Rx Instructions: Take two (2) tablets today, then one (1) tablet days #2 thru #5 methylprednisolone 4 mg Tablets,Dose Pack 4 mg PO DIRECTED 6 Days Qty: 21 0RF Rx Instructions: Take 1 pack as directed for 6 days No Action guaifenesin [Mucinex] 600 mg tablet extended release 12hr 600 mg PO BID PRN Referrals Follow up/Referrals: Yasmin Menendez APRN [Primary Care Provider] - See instructions Activity Restrictions/Add. Instructions Additional Instructions/Restrictions: Drink plenty of fluids. Take tylenol or ibuprofen for pain or fever. Take the medications as directed. Follow up with your regular doctor. GO TO THE ER FOR ANY WORSENING SYMPTOMS Clinical Impressions Clinical Impression: Sinusitis, Asthma exacerbation Stand Alone Forms Stand Alone Forms: Work/School Release Instructions Patient Instructions: Sinusitis, DI for Sinusitis Print Language Print Language: Polish Discharge ED Provider: Mitesh Boothe [facility] General Stated complaint: chest congestion Mode of Arrival: Ambulatory Source of Information: Patient Time Seen by Provider: 08/22/24 08:58 Description of Symptoms (Recalled from Triage Doc. by RN): SINUS INFECTION, ? BRONCHITIS HEENT Symptoms (Recalled from RN notes): Yes Resp Symptoms (Recalled from RN notes): Yes Skin Symptoms (Recalled from RN notes): No MS Symptoms (Recalled from RN notes): No Functional Status (Recalled from RN notes): WNL Related Data Home Medications ?Medication ?Instructions ?Recorded ?Confirmed guaifenesin 600 mg tablet, 600 mg PO BID PRN 02/11/24 07/09/24 extended release 12 hr (Mucinex) Previous Rx's ?Medication ?Instructions ?Recorded azithromycin 250 mg tablet 250 mg PO UD DOSE PK #6 tabs 08/22/24 (Zithromax) elzicoaiqrwnqen-gajujijwkrsvzfy-PR 5 ml PO Q6H PRN Cough #240 mL 08/22/24 2 mg-30 mg-10 mg/5 mL oral syrup (Bromfed DM) methylprednisolone 4 mg tablets in 4 mg PO DIRECTED 6 days #21 tabs 08/22/24 a dose pack Allergies Allergy/AdvReac Type Severity Reaction Status Date / Time pneumococcal vaccine Allergy Severe Unknown Verified 07/09/24 15:29 [From PNEUMOVAX 23] allergy reaction morphine [MORPHINE] Allergy Mild Verified 07/09/24 15:29 cefdinir Allergy Verified 07/09/24 15:29 Sulfa (Sulfonamide Allergy Verified 07/09/24 15:29 Antibiotics) Worker's Comp Is this a Worker's Comp case?: No [facility] Disclaimer: The information contained in this section may have been updated after the patient was seen, as this information can be updated by other users. Medical History Acute cough Decreased ROM of thumb Injury of left thumb Nausea vomiting and diarrhea Acute epigastric pain Sinusitis Acute bronchitis Asthma with exacerbation Pneumonia Acute viral syndrome Broken forearm left Surgical History H/O pelvic surgery broken pelvic bone Social History Smoking Status: Never smoker alcohol intake: never current occupational status: employed Travel in the last 8 weeks: None ROS Obtained: Yes All systems reviewed & no additional complaints except as documented Constitutional Constitutional: Reports poor appetite Eyes Eyes: Reports system reviewed and no additional complaints, except as documented ENT Ears, Nose, Mouth, and Throat: Reports as per HPI Cardiovascular Cardiovascular: Reports system reviewed and no additional complaints, except as documented and Denies chest pain Respiratory Respiratory: Denies shortness of breath, Reports chest congestion, Reports cough, Denies stridor and Denies wheezing Gastrointestinal Gastrointestingal: Reports system reviewed and no additional complaints, except as documented; Denies abdominal pain, diarrhea or vomiting Musculoskeletal Musculoskeletal: Reports system reviewed and no additional complaints, except as documented and Denies arthralgias Integumentary/Breasts Skin/Breast: Reports system reviewed and no additional complaints, except as documented and Denies rash Neurologic Neurologic: Denies paresthesias Allergic/Immunologic Allergic/Immunologic: Denies wheezing Physical Exam General General appearance: alert and in no apparent distress Eye Eye exam: Present normal appearance, PERRL and EOMI ENT ENT exam: Present mucous membranes moist and normal external ear exam Expanded ENT Exam External ear exam: Present normal external inspection TM/Canal exam: Bilateral TM: erythema and bulging Nose exam: Absent sinus tenderness Nasal speculum exam: Bilateral: normal Mouth exam: Present normal external inspection; Absent drooling Teeth exam: Present normal inspection Throat exam: Present tonsillar erythema and tonsillomegaly Neck Neck exam: Present normal inspection, full ROM and trachea midline; Absent tenderness, lymphadenopathy or thyromegaly Chest Chest inspection: Present normal inspection and symmetric chest wall rise; Absent tenderness or rash Respiratory Respiratory exam: Present normal lung sounds bilaterally; Absent respiratory distress, wheezes, stridor or accessory muscle use Cardiovascular Cardiovascular exam: Present regular rate, normal rhythm and normal heart sounds Abdominal Exam Abdominal exam: Present soft; Absent distention, tenderness, guarding, rebound or rigidity Extremities Exam Extremities exam: Present normal inspection, full ROM and normal capillary refill; Absent tenderness or calf tenderness Back Exam Back exam: Present normal inspection and full ROM; Absent tenderness Neurological Exam Neurological exam: Present alert and oriented X3 Psychiatric Psychiatric exam: Present normal affect and normal mood Skin Skin exam: Present warm, dry, intact and normal color Lymphatic Lymphatic Findings: no adenopathy Medical Decision Making Medical Records Medical records reviewed: No I reviewed the patient's medical records. Screening: Per USPSTF and CDC recommendations, given the prevalence of disease in our region, it is our hospital?s policy to screen for HIV and viral Hepatitis for all patients aged 18 and over and those with ongoing risk factors. Jose Inquiry Pt receiving controlled substance: No Vital Signs: 08/22/24 08:49 Temperature 98.3 F Temperature Source Oral Pulse Rate [Left Radial] 82 Respiratory Rate 18 Blood Pressure [Left Arm] 163/93 H Blood Pressure Mean [Left Arm] 116 02 Sat by Pulse Oximetry 97
[2024-08-22 09:09] VITALS: BP 163/93; PULSE 82; RESP 18; TEMP 36.8
== END 2024-08-22 09:13 | disposition home or self-care (01) ==
PROVIDERS: Emergency Provider Nurse Practitioner Family; PCP Nurse Practitioner Family
DX: J45.901 Unspecified asthma with (acute) exacerbation (principal)
CPT/HCPCS: 99213; G0381

== ENCOUNTER 2024-09-06 10:30 | Outpatient (CLI) | payer BC, SELFPAY ==
--- NOTE | 2024-09-06 10:44 | XR_ITS ---
FINAL REPORT TECHNIQUE: Cervical spine 5 views CLINICAL HISTORY: cervicogenic headaches COMPARISON: None FINDINGS: CERVICAL SPINE: The cervical vertebral bodies are well aligned. No acute fracture or dislocation is identified. No prevertebral soft tissue swelling is present. The disc spaces are preserved. IMPRESSION: Unremarkable cervical spine series. Reviewed, Interpreted and Dictated by Duc Bertrand MD Transcribed by Chelsi Carolina Authenticated and [facility]
[2024-09-06 11:29] LABS: Basophils # 0.1 K/mm3 (0-0.2); Basophils % 0.7 % (0.1-2.0); Eosinophils % 0.5 % (0.1-12.0); Hematocrit 38.7 % (37.0-47.0); Hemoglobin 13.4 g/dL (12.2-16.2); Lymphocytes # 2.4 K/mm3 (0.7-4.5); Lymphocytes % 29.2 % (10-50); Mean Corpuscular HGB Conc 34.5 g/dL (31.8-35.4); Mean Corpuscular Hemoglobin 28.9 pg (27.0-31.2); Mean Corpuscular Volume 83.7 fl (81-99); Mean Platelet Volume 8.9 fl (7.4-10.4); Monocytes # 0.5 K/mm3 (0.1-1.0); Monocytes % 6.3 % (1.7-9.3); Neutrophils # 5.1 K/mm3 (1.8-7.8); Neutrophils % 63.3 % (37.0-80.0); Platelet Count 227 K/mm3 (142-424); Red Blood Count 4.63 M/mm3 (4.20-5.40); Red Cell Distribution Width 12.6 % (11.5-17.5); White Blood Count 8.1 K/mm3 (4.8-10.8)
[2024-09-06 11:44] LABS: Estimated Glomerular Filt Rate 82 ml/min (>60); GFR (African American) 99 ML/MIN (>60)
[2024-09-06 12:12] LABS: Erythrocyte Sedimentation Rate 17 mm/hr (0-20)
[2024-09-06 13:28] LABS: Alanine Aminotransferase 12 U/L (12-78); Albumin Level 4.2 g/dl (3.5-5.0); Albumin/Globulin Ratio 1.6 (1.1-1.8); Alkaline Phosphatase 38 U/L (38-126); Anion Gap 14.2 mEq/L (5-15); Aspartate Amino Transferase 20 U/L (14-36); Bilirubin,Total 0.6 mg/dl (0.2-1.3); Blood Urea Nitrogen 9 mg/dl (7-17); Calcium 9.2 mg/dl (8.4-10.2); Carbon Dioxide 26 mmol/L (22.0-30.0); Chloride 105 mmol/L (98-107); Globulin 2.7 g/dL (1.3-3.2); Glucose 112 mg/dl (74-100); Magnesium 2.2 mg/dl (1.6-2.3); Potassium 4.2 mmoL/L (3.5-5.1); Sodium 141 mmol/L (136-145); Total Protein,Serum 6.9 g/dl (6.3-8.2); Uric Acid 2.9 mg/dl (2.5-6.2)
[2024-09-06 13:59] LABS: Thyroid Stimulating Hormone 1.86 uIU/mL (0.465-4.68)
[2024-09-06 14:18] LABS: Vitamin B12 220 pg/mL (239-931)
[2024-09-06 15:58] LABS: Ferritin 11.6 ng/ml (6.24-137)
[2024-09-07 05:29] LABS: RA Latex Turbid. <10.0 IU/mL (<14.0)
[2024-09-08 14:13] LABS: Antinuclear Antibodies, IFA Negative (.)
[2024-09-15 09:56] LABS: Anti-DNA (DS) Ab Charge YES; Anti-DNA (DS) Ab Qn 2; Antinuclear Antibodies (ANA) POSITIVE; Antiscleroderma-70 Abs Charge YES; Antiscleroderma-70 Antibodies <0.2; RNP Antibodies <0.2; RNP Antibodies Charge YES; Sjogren's Anti-SS-A <0.2; Sjogren's Anti-SS-A Ab Charge YES; Smith Antibodies Charge YES
[2024-09-15 09:57] LABS: Anti-Centromere B Abs Charge YES; Anti-Centromere B Antibodies <0.2; Anti-Jo-1 <0.2; Anti-Jo-1 Charge YES; Antichromatin Abs Charge YES; Antichromatin Antibodies <0.2; Sjogren's Anti-SS-B 5.8; Sjogren's Anti-SS-B Ab Charge YES
== END 2024-09-06 23:59 | disposition home or self-care (01) ==
LOC: LAB 10:31
PROVIDERS: PCP Nurse Practitioner Family; Visit Provider Nurse Practitioner Family
DX: M25.50 Pain in unspecified joint (principal); G44.86 Cervicogenic headache
CPT/HCPCS: 36415; 72050; 80050; 80053; 82607; 82728; 83735; 84443; 84550; 85025; 85651; 86038; 86225; 86235; 86431

== ENCOUNTER 2024-11-02 15:42 | Outpatient (CLI) | payer BC, SELFPAY ==
[2024-11-02 18:58] LABS: Vitamin B12 371 pg/mL (239-931)
== END 2024-11-02 23:59 | disposition home or self-care (01) ==
LOC: LAB.DROPOF 11-03 11:10
PROVIDERS: PCP Nurse Practitioner Family; Visit Provider Nurse Practitioner Family
DX: E53.8 Deficiency of other specified B group vitamins (principal); R30.0 Dysuria
CPT/HCPCS: 82607; 86340; 87086

== ENCOUNTER 2024-11-05 09:02 | Outpatient (CLI) | payer BC, SELFPAY ==
[2024-11-05 16:43] LABS: Microscopic, Urine URINE MICROSCOPIC (MICROSCOPIC)
[2024-11-05 18:44] LABS: Appearance,Urine CLEAR (Clear); Bilirubin,Urine Negative (Negative); Blood, Urine Negative (Negative); Color,Urine YELLOW (Yellow); Glucose,Urine (UA) Negative (Negative); Ketones,Urine TRACE (Negative); Leukocyte Esterase,Urine Negative (Negative); Nitrate,Urine Negative (Negative); Protein,Urine Negative (Negative); Urobilinogen,Urine 0.2 EU/dl (0.2)
[2024-11-05 19:06] LABS: Bacteria,Urine 1+ /lpf; Mucus,Urine 2+ /lpf
== END 2024-11-05 23:59 | disposition home or self-care (01) ==
LOC: LAB.DROPOF 11-08 09:03
PROVIDERS: PCP Nurse Practitioner Family; Visit Provider Nurse Practitioner Family
DX: R30.0 Dysuria (principal); R82.90 Unspecified abnormal findings in urine
CPT/HCPCS: 81001; 87086

== ENCOUNTER 2025-01-02 12:08 | Emergency (ER) | payer BC, SELFPAY ==
[2025-01-02 12:12] VITALS: BP 167/92; PULSE 76; RESP 18; TEMP 36.8; O2SAT 100; BMI 27.8
--- NOTE | 2025-01-02 12:19 | XR_ITS ---
PROCEDURE INFORMATION: Exam: XR Chest Exam date and time: 01/02/2025 1:03 PM Age: 34 years old Clinical indication: Shortness of breath; Additional info: SOA TECHNIQUE: Imaging protocol: Radiologic exam of the chest. Views: 1 view. COMPARISON: CR XR CHEST 2V 07/10/2023 6:33 PM FINDINGS: Lungs: Unremarkable. No consolidation. Pleural spaces: Unremarkable. No pleural effusion. No pneumothorax. Heart/Mediastinum: Unremarkable. No cardiomegaly. Bones/joints: Unremarkable. IMPRESSION: No acute findings.
[2025-01-02] MEDS: IPRATROPIUM/ALBUTEROL 3 ML NEB 9 ML IH (12:22)
[2025-01-02] MEDS: MAGNESIUM SULFATE IN WATER 2 GM/50 ML PIGGYBACK IV (12:23)
[2025-01-02] MEDS: METHYLPREDNISOLONE SOD SUCC 125MG VIAL 125 MG IV (12:23)
--- NOTE | 2025-01-02 12:23 | ED_ITS ---
Discharge Plan Disposition Patient Disposition: Home, Self-Care Prescriptions Prescriptions: New albuterol sulfate 90 mcg/actuation aerosol powdr breath activated 2 inh inhalation Q6H PRN (Reason: shortness of breath) Qty: 1 0RF No Action ondansetron 4 mg tablet,disintegrating 4 mg PO Q8H PRN (Reason: nausea and vomiting) Qty: 30 0RF Ubrelvy 100 mg tablet 100 mg PO ONCE Qty: 20 0RF norelgestromin-ethin.estradiol [Xulane] 150-35 mcg/24 hr patch weekly 1 patch transdermal WEEKLY Qty: 3 3RF Rx Instructions: apply once weekly for 3 weeks of a 4-week cycle cyclobenzaprine 10 mg tablet 10 mg PO TID PRN (Reason: muscle spasm) Qty: 30 0RF cyanocobalamin (vitamin B-12) 1,000 mcg/mL kit 1,000 mcg IM .every 2 weeks 90 Days Qty: 6 0RF Rx Instructions: With syringe kit nitrofurantoin monohyd/m-cryst [Macrobid] 100 mg capsule 100 mg PO Q12H 7 Days Qty: 14 0RF Rx Instructions: must administer with a meal/food methylprednisolone [Medrol (Teofilo)] 4 mg tablets,dose pack See Rx Instructions PO PER PKG DIR Qty: 21 0RF Rx Instructions: PO PER PKG DIR for 6 days Referrals Follow up/Referrals: Yasmin Menendez APRN [Primary Care Provider] - See instructions Activity Restrictions/Add. Instructions Additional Instructions/Restrictions: Today you were evaluated in the emergency department. You have been diagnosed with asthma exacerbation. Please use the albuterol inhaler as directed. Please follow-up with your primary care physician within 3 days. Please return to the ED for any worsening of condition. Clinical Impressions Clinical Impression: Asthma exacerbation Qualifiers: Asthma severity: mild Asthma persistence: unspecified Qualified Code(s): J 45.901 - Unspecified asthma with (acute) exacerbation Print Language Print Language: [place] Discharge ED Provider: Carlos Eduardo Moreno Adult HPI <Delaney Mora APRN - Last Filed: 01/02/25 15:13> General Chief complaint: Upper Respiratory Infection Stated complaint: SOB, Asthma Time Seen by Provider: 01/02/25 12:10 Mode of Arrival: Ambulatory Source of Information: Patient Description of Symptoms (Recalled from ER Triage Doc. by RN): pt presents with c/o cold like sx for 3 weeks and this AM started to have difficulty breathing, stridor, wheezing. Tried albuterol Pt has hx of asthma History of Present Illness HPI narrative: patient is a 34-year-old female PMHx asthma who presents to the ED for sudden onset shortness of breath during catholic prior to arrival. Patient states that she has had flulike symptoms for the past 3 weeks however became short of breath today. Related Data Previous Rx's ?Medication ?Instructions ?Recorded ondansetron 4 mg disintegrating 4 mg PO Q8H PRN nausea and 09/06/24 tablet vomiting #30 tabs ubrogepant 100 mg tablet (Ubrelvy) 100 mg PO ONCE #20 tabs 09/06/24 cyclobenzaprine 10 mg tablet 10 mg PO TID PRN muscle spasm #30 11/02/24 tabs norelgestromin 150 mcg-e.estradiol 1 patch transdermal WEEKLY #3 ea 11/02/24 35 mcg/24 hr weekly transderm patch (Xulane) cyanocobalamin (vitamin B-12) 1,000 mcg IM .every 2 weeks 3 11/03/24 1,000 mcg/mL injection kit months #6 ea nitrofurantoin 100 mg PO Q12H 7 days #14 caps 11/05/24 monohydrate/macrocrystals 100 mg capsule (Macrobid) methylprednisolone 4 mg tablets in See Rx Instructions PO PER PKG DIR 12/06/24 a dose pack (Medrol (Teofilo)) #21 tabs albuterol sulfate 90 mcg/actuation 2 inh inhalation Q6H PRN shortness 01/02/25 breath activated powder inhaler of breath #1 ea Allergies Allergy/AdvReac Type Severity Reaction Status Date / Time pneumococcal vaccine (From Allergy Severe Unknown Verified 11/02/24 15:35 PNEUMOVAX 23) allergy reaction morphine (MORPHINE) Allergy Mild Verified 11/02/24 15:35 cefdinir Allergy Verified 11/02/24 15:35 Sulfa (Sulfonamide Allergy Verified 11/02/24 15:35 Antibiotics) [facility] <Delaney Mora APRN - Last Filed: 01/02/25 15:13> [facility] Disclaimer: The information contained in this section may have been updated after the patient was seen, as this information can be updated by other users. Medical History Acute cough Decreased ROM of thumb Injury of left thumb Nausea vomiting and diarrhea Acute epigastric pain Sinusitis Acute bronchitis Asthma with exacerbation Pneumonia Acute viral syndrome Broken forearm left Surgical History H/O pelvic surgery broken pelvic bone Social History Smoking Status: Never smoker alcohol intake: never current occupational status: employed Travel in the last 8 weeks: None Have you lived/traveled outside US in past 30 days?: No Contact w/someone who lives/traveled outside US past 30 days?: No Exposure to someone with infectious disease in past 14 days?: No Do you have a fever (greater than 100.4 F or 38 C)?: No Have you tested positive for COVID-19: No Exposed to someone with COVID-19 in past 14 days?: No Do you have a sore throat?: No Do you have a cough?: No Do you have any weakness?: No Do you have any diarrhea?: No Are you experiencing any unusual bleeding?: No Do you have any muscle aches/pain?: No Do you have any abdominal pain?: No Are you experiencing loss of taste or smell?: No Other Medical History Have you received the Flu Vaccine for this season: No Have you received the Pneumonia Vaccine: No <Delaney Mora APRN - Last Filed: 01/02/25 15:13> ROS Obtained: Yes Systems reviewed as appropriate & no additional complaints except as documented Physical Exam <Delaney Mora APRN - Last Filed: 01/02/25 15:13> General General appearance: alert and in no apparent distress Head Head exam: atraumatic and normocephalic Eye Eye exam: Present normal appearance and PERRL ENT ENT exam: Present normal exam Neck Neck exam: Present normal inspection Chest Chest inspection: Present normal inspection and symmetric chest wall rise; Absent tenderness Respiratory Respiratory exam: Present other (mild respiratory distress, tachypnea, bilateral wheezing and inspiratory wheezing) Cardiovascular Cardiovascular exam: Present tachycardia Abdominal Exam Abdominal exam: Present soft and normal bowel sounds; Absent tenderness Extremities Exam Extremities exam: Present normal inspection and full ROM Back Exam Back exam: Present normal inspection and full ROM Neurological Exam Neurological exam: Present alert and oriented X3 Psychiatric Psychiatric exam: Present normal affect and normal mood Skin Skin exam: Present warm and dry Medical Decision Making <Delaney Mora APRN - Last Filed: 01/02/25 15:13> Medical Records Screening: Per USPSTF and CDC recommendations, given the prevalence of disease in our region, it is our hospital?s policy to screen for HIV and viral Hepatitis for all patients aged 18 and over and those with ongoing risk factors. Jose Inquiry Pt receiving controlled substance: No Jose was queried for this patient: No Vital Signs: 01/02/25 12:12 01/02/25 12:30 01/02/25 13:35 Temperature 98.2 F Temperature Source Temporal Artery Scan Pulse Rate 74 76 Pulse Rate [Right] 76 Respiratory Rate 18 Blood Pressure 152/97 H 129/77 Blood Pressure [Right Arm] 167/92 H Blood Pressure Mean [Right Arm] 117 Blood Pressure Source [Right Arm] Automatic Cuff Blood Pressure Position [Right Arm] Sitting 02 Sat by Pulse Oximetry 100 100 98 Oxygen Delivery Method Room Air Room Air 01/02/25 14:00 01/02/25 14:31 Temperature 98.2 F Temperature Source Pulse Rate 85 95 H Pulse Rate [Right] Respiratory Rate 20 Blood Pressure 135/84 135/84 Blood Pressure [Right Arm] Blood Pressure Mean [Right Arm] Blood Pressure Source [Right Arm] Blood Pressure Position [Right Arm] 02 Sat by Pulse Oximetry 97 Oxygen Delivery Method Room Air Room Air Lab Data Lab Results 01/02/25 12:21: WBC 8.3, RBC 4.58, Hgb 12.9, Hct 39.0, MCV 85.2, MCH 28.2, MCHC 33.1, RDW 11.6, Plt Count 320, MPV 11.0 H, Neut % (Auto) 52.0, Lymph % (Auto) 38.0, Hooker % (Auto) 8.3, Eos % (Auto) 1.0, Baso % (Auto) 0.6, Neut # (Auto) 4.3, Lymph # (Auto) 3.2, Hooker # (Auto) 0.7, Eos # (Auto) 0.1, Baso # (Auto) 0.1, Sodium 138, Potassium 3.7, Chloride 104, Carbon Dioxide 26, Anion Gap 11.7, BUN 9, Creatinine 0.90, Estimated Creat Clear 110, Estimated GFR 71, Est GFR ( Amer) 86, Glucose 119 H, Calcium 9.4, Total Bilirubin 0.6, AST 23, ALT 17, Alkaline Phosphatase 45, Total Protein 7.6, Albumin 4.7, Globulin 2.9, Albumin/Globulin Ratio 1.6, HCV Ab TREE w/Rflx PCR Qn Negative, HIV Ag/Ab Combo Qual Negative 01/02/25 12:21 01/02/25 12:21 Orders (Tests/Meds): ED MEDICATIONS Discontinued Medications Generic Name Dose Route Start Last Admin Trade Name Freq PRN Reason Stop Dose Admin Albuterol/Ipratropium 9 ml 01/02/25 12:19 01/02/25 12:22 Ipratropium/Albuterol 3 Ml Neb IH 01/02/25 12:20 9 ml ONCE ONE Administration Magnesium Sulfate 2 gm in 50 mls @ 50 mls/hr 01/02/25 12:21 01/02/25 12:23 Magnesium Sulfate 2gm/50ml Premix IV 01/02/25 13:20 50 mls/hr ONCE ONE Administration Methylprednisolone Sodium Succinate 125 mg 01/02/25 12:19 01/02/25 12:23 Methylprednisolone Sod Succ 125mg Vial IV 01/02/25 12:20 125 mg ONCE ONE Administration Sodium Chloride 10 ml 01/02/25 12:20 Sodium Chloride 0.9% 10ml Flush Syringe IV 02/01/25 12:19 NEEDED PRN Maintain IV Site ORDERS Category Date Time Status CXR --portable [XR chest portable] Stat Exams 01/02/25 12:19 Completed CBC w/Auto Diff [Complete Blood Count Auto Diff] Stat Lab 01/02/25 12:21 Completed CMP [Comprehensive Metabolic Panel] Stat Lab 01/02/25 12:21 Completed HIV Combo Stat Lab 01/02/25 12:21 Completed Hepatitis C Ab Qual. W/ RFX Stat Lab 01/02/25 12:21 Completed Medical Decision Narrative: In summary, patient is a 34-year-old female PMHx asthma who presents to the ED for sudden onset shortness of breath during catholic prior to arrival. Patient states that she has had flulike symptoms for the past 3 weeks however became short of breath today. She states that she used her inhalers for her asthma without any relief. Upon initial exam, patient is alert, oriented and cooperative. Patient is hemodynamically stable. Physical exam remarkable for mild respiratory distress, tachypnea, bilateral wheezing and inspiratory wheezing. Differential diagnosis includes asthma exacerbation, pulmonary embolism, pneumonia, pneumothorax, infectious process, among others. Initial workup will be conducted with hematologic labs, imaging. Initial inventions include Solu-Medrol, continuous DuoNeb, magnesium administration IV. Initial workup reviewed by me. CBC unremarkable for any leukocytosis, stable H&H. CMP unremarkable for any actual abnormalities. Final read of the chest x-ray is no acute findings. Upon repeat evaluation, patient has significant improvement of respiratory distress during DuoNeb administration and magnesium administration. Inspiratory wheezing subsided completely. Expiratory wheezing very mild at this time. Patient states she feels back to baseline. Given this, I feel patient is appropriate to be discharged at this time. She has a prescription for Flovent at home I advised her to use this once in the morning once in the evening. I wrote a prescription for albuterol, we discussed rescue inhaler use, advised her to do 2 puffs every 4-6 hours as needed. I advised her to follow-up with her PCP within 3 days. Discussed that she will need to return to the ED for any worsening of her condition. Patient verbalized understanding. She is hemodynamically stable, O2 saturation on room air is 98% upon discharge. <Carlos Eduardo Moreno MD - Last Filed: 01/02/25 16:43> Vital Signs: 01/02/25 12:12 01/02/25 12:30 01/02/25 13:35 Temperature 98.2 F Temperature Source Temporal Artery Scan Pulse Rate 74 76 Pulse Rate [Right] 76 Respiratory Rate 18 Blood Pressure 152/97 H 129/77 Blood Pressure [Right Arm] 167/92 H Blood Pressure Mean [Right Arm] 117 Blood Pressure Source [Right Arm] Automatic Cuff Blood Pressure Position [Right Arm] Sitting 02 Sat by Pulse Oximetry 100 100 98 Oxygen Delivery Method Room Air Room Air 01/02/25 14:00 01/02/25 14:31 Temperature 98.2 F Temperature Source Pulse Rate 85 95 H Pulse Rate [Right] Respiratory Rate 20 Blood Pressure 135/84 135/84 Blood Pressure [Right Arm] Blood Pressure Mean [Right Arm] Blood Pressure Source [Right Arm] Blood Pressure Position [Right Arm] 02 Sat by Pulse Oximetry 97 Oxygen Delivery Method Room Air Room Air Lab Data Lab Results 01/02/25 12:21: WBC 8.3, RBC 4.58, Hgb 12.9, Hct 39.0, MCV 85.2, MCH 28.2, MCHC 33.1, RDW 11.6, Plt Count 320, MPV 11.0 H, Neut % (Auto) 52.0, Lymph % (Auto) 38.0, [place]er % (Auto) 8.3, Eos % (Auto) 1.0, Baso % (Auto) 0.6, Neut # (Auto) 4.3, Lymph # (Auto) 3.2, Hooker # (Auto) 0.7, Eos # (Auto) 0.1, Baso # (Auto) 0.1, Sodium 138, Potassium 3.7, Chloride 104, Carbon Dioxide 26, Anion Gap 11.7, BUN 9, Creatinine 0.90, Estimated Creat Clear 110, Estimated GFR 71, Est GFR ( Amer) 86, Glucose 119 H, Calcium 9.4, Total Bilirubin 0.6, AST 23, ALT 17, Alkaline Phosphatase 45, Total Protein 7.6, Albumin 4.7, Globulin 2.9, Albumin/Globulin Ratio 1.6, HCV Ab TREE w/Rflx PCR Qn Negative, HIV Ag/Ab Combo Qual Negative Orders (Tests/Meds): ED MEDICATIONS Discontinued Medications Generic Name Dose Route Start Last Admin Trade Name Freq PRN Reason Stop Dose Admin Albuterol/Ipratropium 9 ml 01/02/25 12:19 01/02/25 12:22 Ipratropium/Albuterol 3 Ml Neb IH 01/02/25 12:20 9 ml ONCE ONE Administration Magnesium Sulfate 2 gm in 50 mls @ 50 mls/hr 01/02/25 12:21 01/02/25 12:23 Magnesium Sulfate 2gm/50ml Premix IV 01/02/25 13:20 50 mls/hr ONCE ONE Administration Methylprednisolone Sodium Succinate 125 mg 01/02/25 12:19 01/02/25 12:23 Methylprednisolone Sod Succ 125mg Vial IV 01/02/25 12:20 125 mg ONCE ONE Administration Sodium Chloride 10 ml 01/02/25 12:20 Sodium Chloride 0.9% 10ml Flush Syringe IV 02/01/25 12:19 NEEDED PRN Maintain IV Site ORDERS Category Date Time Status CXR --portable [XR chest portable] Stat Exams 01/02/25 12:19 Completed CBC w/Auto Diff [Complete Blood Count Auto Diff] Stat Lab 01/02/25 12:21 Completed CMP [Comprehensive Metabolic Panel] Stat Lab 01/02/25 12:21 Completed HIV Combo Stat Lab 01/02/25 12:21 Completed Hepatitis C Ab Qual. W/ RFX Stat Lab 01/02/25 12:21 Completed Medical Decision Narrative: In summary, patient is a 34-year-old female PMHx asthma who presents to the ED for sudden onset shortness of breath during catholic prior to arrival. Patient states that she has had flulike symptoms for the past 3 weeks however became short of breath today. She states that she used her inhalers for her asthma without any relief. Upon initial exam, patient is alert, oriented and cooperative. Patient is hemodynamically stable. Physical exam remarkable for mild respiratory distress, tachypnea, bilateral wheezing and inspiratory wheezing. Differential diagnosis includes asthma exacerbation, pulmonary embolism, pneumonia, pneumothorax, infectious process, among others. Initial workup will be conducted with hematologic labs, imaging. Initial inventions include Solu-Medrol, continuous DuoNeb, magnesium administration IV. Initial workup reviewed by me. CBC unremarkable for any leukocytosis, stable H&H. CMP unremarkable for any actual abnormalities. Final read of the chest x-ray is no acute findings. Upon repeat evaluation, patient has significant improvement of respiratory distress during DuoNeb administration and magnesium administration. Inspiratory wheezing subsided completely. Expiratory wheezing very mild at this time. Patient states she feels back to baseline. Given this, I feel patient is appropriate to be discharged at this time. She has a prescription for Flovent at home I advised her to use this once in the morning once in the evening. I wrote a prescription for albuterol, we discussed rescue inhaler use, advised her to do 2 puffs every 4-6 hours as needed. I advised her to follow-up with her PCP within 3 days. Discussed that she will need to return to the ED for any worsening of her condition. Patient verbalized understanding. She is hemodynamically stable, O2 saturation on room air is 98% upon discharge. I was consulted by the HELLEN, and we discussed the complexity of the problems being addressed. I approve the treatment and management plan for this patient's care in the emergency department, thus performing a substantive portion of the medical decision making. Carlos Eduardo Moreno MD Critical Care <Delaney Mora, OTHER WOOD PROCESSING MACHINE OPERATOR - Last Filed: 01/02/25 15:13> Critical Care Time Critical Care Time: No
[2025-01-02 12:30] VITALS: BP 152/97; PULSE 74; O2SAT 100
[2025-01-02 12:30] LABS: Basophils # 0.1 K/mm3 (0-0.2); Basophils % 0.6 % (0.1-2.0); Eosinophils # 0.1 K/mm3 (0.0-0.4); Hemoglobin 12.9 g/dL (12.2-16.2); Lymphocytes # 3.2 K/mm3 (0.7-4.5); Mean Corpuscular HGB Conc 33.1 g/dL (31.8-35.4); Mean Corpuscular Hemoglobin 28.2 pg (27.0-31.2); Mean Corpuscular Volume 85.2 fl (81-99); Monocytes # 0.7 K/mm3 (0.1-1.0); Monocytes % 8.3 % (1.7-9.3); Neutrophils # 4.3 K/mm3 (1.8-7.8); Platelet Count 320 K/mm3 (142-424); Red Blood Count 4.58 M/mm3 (4.20-5.40); Red Cell Distribution Width 11.6 % (11.5-17.5); White Blood Count 8.3 K/mm3 (4.8-10.8)
[2025-01-02 12:35] LABS: Albumin Level 4.7 g/dl (3.5-5.0); Chloride 104 mmol/L (98-107); Potassium 3.7 mmoL/L (3.5-5.1); Sodium 138 mmol/L (136-145)
[2025-01-02 12:37] LABS: Blood Urea Nitrogen 9 mg/dl (7-17); Creatinine Clearance Estimated 110 mL/min (50-200); Estimated Glomerular Filt Rate 71 ml/min (>60); GFR (African American) 86 ML/MIN (>60)
[2025-01-02 12:38] LABS: Alanine Aminotransferase 17 U/L (12-78); Albumin/Globulin Ratio 1.6 (1.1-1.8); Alkaline Phosphatase 45 U/L (38-126); Anion Gap 11.7 mEq/L (5-15); Aspartate Amino Transferase 23 U/L (14-36); Bilirubin,Total 0.6 mg/dl (0.2-1.3); Calcium 9.4 mg/dl (8.4-10.2); Carbon Dioxide 26 mmol/L (22.0-30.0); Globulin 2.9 g/dL (1.3-3.2); Glucose 119 mg/dl (74-100); Total Protein,Serum 7.6 g/dl (6.3-8.2)
[2025-01-02 13:32] LABS: HIV Combo NEGATIVE (Negative)
[2025-01-02 13:35] VITALS: BP 129/77; PULSE 76; O2SAT 98
[2025-01-02 13:41] LABS: Hepatitis C Ab Qual. W/ RFX NEGATIVE (Negative)
[2025-01-02 14:00] VITALS: BP 135/84; PULSE 85; O2SAT 97
[2025-01-02 14:31] VITALS: BP 135/84; PULSE 95; RESP 20; TEMP 36.8; O2SAT 99
== END 2025-01-02 14:32 | disposition home or self-care (01) ==
PROVIDERS: Nurse Practitioner; Emergency Provider Student in an Organized Health Care Education/Training Program; PCP Nurse Practitioner Family
DX: J45.901 Unspecified asthma with (acute) exacerbation (principal)
CPT/HCPCS: 71045; 80053; 85025; 86803; 87389; 94640; 96365; 96375; 99284; J2919; J3475; J7620

== ENCOUNTER 2025-07-11 14:14 | Outpatient (CLI) | payer BC, SELFPAY ==
[2025-07-11 17:56] LABS: Albumin Level 4.6 g/dl (3.5-5.0); Chloride 102 mmol/L (98-107); Sodium 139 mmol/L (136-145)
[2025-07-11 17:57] LABS: Potassium 4.1 mmoL/L (3.5-5.1)
[2025-07-11 17:59] LABS: Alanine Aminotransferase 12 U/L (12-78); Anion Gap 14.1 mEq/L (5-15); Aspartate Amino Transferase 24 U/L (14-36); Blood Urea Nitrogen 9 mg/dl (7-17); Carbon Dioxide 27 mmol/L (22.0-30.0); Creatinine,Serum 0.80 mg/dl (0.52-1.04); Estimated Glomerular Filt Rate 81 ml/min (>60); GFR (African American) 98 ML/MIN (>60)
[2025-07-11 18:00] LABS: Albumin/Globulin Ratio 1.7 (1.1-1.8); Alkaline Phosphatase 49 U/L (38-126); Bilirubin,Total 0.6 mg/dl (0.2-1.3); Calcium 9.5 mg/dl (8.4-10.2); Globulin 2.7 g/dL (1.3-3.2); Glucose 77 mg/dl (74-100); Total Protein,Serum 7.3 g/dl (6.3-8.2)
[2025-07-11 18:12] LABS: Hematocrit 36.6 % (37.0-47.0); Hemoglobin 12.0 g/dL (12.2-16.2); Immature Granulocytes % 0.2 %; Mean Corpuscular HGB Conc 32.8 g/dL (31.8-35.4); Mean Corpuscular Hemoglobin 28.0 pg (27.0-31.2); Mean Corpuscular Volume 85.5 fl (81-99); Nucleated Red Blood Cells % 0 %; Platelet Count 289 K/mm3 (142-424); Red Blood Count 4.28 M/mm3 (4.20-5.40); Red Cell Distribution Width-SD 36.1 fL; White Blood Count 8.8 K/mm3 (4.8-10.8)
[2025-07-11 18:22] LABS: T4 (Thyroxine) 9.2 ug/dl (5.53-11.0)
[2025-07-11 18:23] LABS: 25-OH Vitamin D, Total 43.3 ng/mL (30-100)
[2025-07-11 18:35] LABS: Thyroid Stimulating Hormone 2.40 uIU/mL (0.465-4.68)
[2025-07-11 18:40] LABS: Ferritin 15.7 ng/ml (6.24-137)
[2025-07-11 19:43] LABS: Hemoglobin A1C 5.3 % (4.0-6.0)
[2025-07-11 19:51] LABS: Vitamin B12 361 pg/mL (239-931)
--- OUTSIDE RECORDS SUMMARY | 2025-07-12 13:49 | XMS_ITS | Clinical Summary ---
Author Organization [facility] Address [address] [place] [address] Care Team Providers Care Education And Training Coordinator Name Role Phone Yasmin Menendez APRN Primary Care Provider + [phone] Allergies Active Allergy Reactions Criticality Noted Date Comments Cefdinir Rash Low 10/27/2019 Elemental Sulfur Hives Medium 10/27/2019 Morphine And Codeine Other (See Comments) 11/08 Red streak up arm developed, no breathing trouble/hives, etc. Medications Vit-Fe Fumarate-FA ( 27-1) 27-1 MG tablet tablet Take 1 tablet by mouth Daily. Active ferrous sulfate 325 (65 FE) MG tablet Take 1 tablet by mouth Daily With Breakfast. 30 tablet 1 12/04/2019 11:43 AM EST 12/04/2019 Active ibuprofen (ADVIL,MOTRIN) 600 MG tablet Take 1 tablet by mouth Every 6 (Six) Hours As Needed for Mild Pain . 30 tablet 12/04/2019 11:43 AM EST 12/04/2019 Active Active Problems No known active problems Resolved Problems Problem Noted Date Diagnosed Date Resolved Date 12/02/2019 12/04/2019 10/27/2019 12/04/2019 Asthma affecting in third trimester 10/27/1912/04/2019 False labor after 37 weeks o f gestation without delivery 11/09/2017 11/09/2017 Spontaneous vaginal delivery 11/09/2017 12/04/2019 Active labor 11/09/2017 018 Normal labor 11/09/2017 12/04/2019 Social History Tobacco Use Types Packs/Day Years Used Date Smoking Tobacco: Never Smokeless Tobacco: Never Alcohol Use Standard Drinks/Week Comments No 0 (1 standard drink = 0.6 oz pur e alcohol) [place] Depression Scale Answer Date Recorded Retired [place] Depression Score 10 12/03/2019 Retired EPD Scale: Thought of Harming Self Unrec ognized value 12/03/2019 Abuse Screen Answer Date Recorded Unsafe at Home or Work/School Not on file Feels Threatened by Someone? Not on file 07/2023 Does Anyone Keep You from Co ntacting Others or Doint Things Outside the Home? Not on file 07/29/2023 Physical Sign of Abuse Present Not on file 1 Housing Stability Answer Date Recorded Current Living Arrangements Not on file 07/20 Potentially Unsafe Housing Conditions Not on patricio e 07/29/2023 Family and Community Support Answer Morales e Recorded Help with Day-to-Day Activities Not on file 07/29/2023 Lonely or Isolated Not on file 07/29/2023 Employment Answer Date Recorded Do you want help finding or keeping work or a lor b? Not on file 07/29/2023 Disabilities Answer Date Recorded Concentrating, Remembering, or Making Decisions Difficulty Not on file 07/29/2023 Doing Errands Independently Difficulty Not on fi le 07/29/2023 Education Answer Date Recorded Help with school or training? Not on file Preferred Language Not on file 07/29/2023 Comments No Sex and Gender Information Value Date Recorded Sex Assigned at Not on file Legal Sex Female 10:05 AM EDT Gender Identity Not on file Sexual Orientation Not on file Last Filed Vital Signs Vital Sign Reading Time Taken Comments Blood Pressure 121/73 12/04/2019 7:00 AM EST Pulse 81 12/04/2019 7:00 AM EST Temperature 36.6 C (97.8 F) 12/04/2019 7:00 AM EST Respiratory Rate 16 12/04/2019 7:00 AM EST Oxygen Saturation 98% 10/27/2019 10:35 PM EST Inhaled Oxygen Concentration - - Weight 87.5 kg (193 lb) 12/01/2019 10:20 PM EST Height 170.2 cm (5' 7 ) 12/01/2019 10:20 PM EST Body Mass Index 30.23 12/01/2019 10:20 PM EST Plan of Treatment Health Maintenance Due Date Last Done Comments Annual Gynecologic Pelvic an d Breast Exam 1988 TDAP/TD VACCINES (1 - Tdap) 12/24/2007 ANNUAL PHYSICAL 11/24/2019 INFLUENZA VACCINE 05/20/2025 HEPATITIS C SCREENING Completed 04/16/2017 Pneumococcal Vaccine 0-49 Aged Out No longer eligible based on patient's age to complete this topic Procedures Procedure Name Priority Date/Time Associated Diagnosis Comments HEPATITIS C ANTIBODY Routine 04/16/2017 from Last 3 Months or Most Recently Relevant to Health Maintenance Results * Hepatitis C Antibody (04/16/2017) External Hepatitis C Ab Negative Blood [facility] Provider LAB BLOOD ORDERABLES Breanna garrison Result from Last 3 Months or Most Recently Relevant to Health Maintenance Insurance [facility] PPO Advance Directives * CPR (Attempt to Resuscitate) (Latest Code Status on File) Date Activated Date Inactivated Comments 12/02/2019 2:52 PM 12/04/2019 2:48 PM Question Answer Comments Code Status (Patient has no pulse and is not breathing): CPR (Attempt to Resuscitate) Medical Interventions (Patie nt has pulse or is breathing): Full * CPR (Attempt to Resuscitate) Date Activated Date Inactivated Comments 12/01/2019 9:59 PM 12/02/2019 2:52 PM Question Answer Comments Code Status (Patient has no pulse and is not breathing): CPR (Attempt to Resuscitate) Medical Interventions (Patie nt has pulse or is breathing): Full * Full Code Date Activated Date Inactivated Comments 11/09/2017 8:55 PM 11/11/2017 1:29 PM * Full Code Date Activated Date Inactivated Comments 11/09/2017 2:05 PM 11/09/2017 8:55 PM Care Teams Education And Training Coordinator Relationship Specialty Start Date End Date Yasmin Menendez APRN PCP - General Internal Medicine 10/27/19
[2025-07-13 08:27] LABS: Triiodothyronine (T3) Free 3.1 pg/mL (2.0-4.4)
== END 2025-07-11 23:59 | disposition home or self-care (01) ==
LOC: LAB.DROPOF 07-12 13:47
PROVIDERS: PCP Nurse Practitioner Family; Visit Provider Nurse Practitioner Family
DX: N92.6 Irregular menstruation, unspecified (principal); R63.5 Abnormal weight gain; E53.8 Deficiency of other specified B group vitamins
CPT/HCPCS: 80053; 82306; 82607; 82728; 83036; 84436; 84443; 84481; 85025

== ENCOUNTER 2025-08-29 11:34 | Outpatient (CLI) | payer BC, SELFPAY ==
--- OUTSIDE RECORDS SUMMARY | 2025-08-29 11:37 | XMS_ITS | Clinical Summary ---
Author Organization [facility] Address [address] [place] [address] Care Team Providers Care Range Manager Name Role Phone Yasmin Menendez APRN Primary Care Provider + [phone] Allergies Active Allergy Reactions Criticality Noted Date [...] drink = 0.6 oz pur e alcohol) [place] Depression Scale Answer Date Recorded [place] Depression Scale Total 10 12/03/2019 The thought of harming myself has occurred to me . Unrecognized value 12/03/2019 Abuse Screen Answer Date Recorded [...] External Hepatitis C Ab Negative Blood [facility] Provider LAB BLOOD ORDERABLES Breanna garrison Result from Last 3 Months or Most Recently Relevant to Health Maintenance Insurance [facility] PPO Advance Directives * CPR (Attempt to [...] 2:05 PM 11/09/2017 8:55 PM Care Teams Range Manager Relationship Specialty Start Date End Date Yasmin Menendez APRN PCP - General Internal Medicine 10/27/19
--- NOTE | 2025-08-29 12:00 | US_ITS ---
FINAL REPORT TECHNIQUE: Multiple transverse and longitudinal images CLINICAL HISTORY: severe upper abd pain, nausea COMPARISON: None FINDINGS: The gallbladder shows a small stone within the proximal gallbladder measuring up to 3 mm. No biliary ductal dilatation is appreciated. No fluid collections are seen. Limited portions of the right liver are unremarkable. Limited portions of the right kidney are unremarkable. Pancreas is largely obscured. IMPRESSION: Cholelithiasis. No evidence of biliary obstruction. Reviewed, Interpreted and Dictated by Juanito Calderon MD Transcribed by Jessica Gaines Authenticated and [facility]
[2025-08-29 12:29] LABS: Hematocrit 39.3 % (37.0-47.0); Hemoglobin 12.9 g/dL (12.2-16.2); Immature Granulocytes % 0.3 %; Mean Corpuscular HGB Conc 32.8 g/dL (31.8-35.4); Mean Corpuscular Hemoglobin 27.6 pg (27.0-31.2); Mean Corpuscular Volume 84.2 fl (81-99); Nucleated Red Blood Cells % 0 %; Platelet Count 276 K/mm3 (142-424); Red Blood Count 4.67 M/mm3 (4.20-5.40); Red Cell Distribution Width-SD 35.7 fL; White Blood Count 13.1 K/mm3 (4.8-10.8)
[2025-08-29 12:30] LABS: HCG Qualitative, Serum Negative (Negative)
[2025-08-29 12:37] LABS: Alanine Aminotransferase 26 U/L (12-78); Albumin Level 4.4 g/dl (3.5-5.0); Albumin/Globulin Ratio 1.3 (1.1-1.8); Alkaline Phosphatase 64 U/L (38-126); Amylase 72 U/L (30-110); Anion Gap 11.3 mEq/L (5-15); Aspartate Amino Transferase 26 U/L (14-36); Bilirubin,Total 1.2 mg/dl (0.2-1.3); Blood Urea Nitrogen 12 mg/dl (7-17); Calcium 9.4 mg/dl (8.4-10.2); Carbon Dioxide 23 mmol/L (22.0-30.0); Chloride 105 mmol/L (98-107); Creatinine,Serum 0.80 mg/dl (0.52-1.04); Estimated Glomerular Filt Rate 81 ml/min (>60); GFR (African American) 98 ML/MIN (>60); Globulin 3.3 g/dL (1.3-3.2); Glucose 93 mg/dl (74-100); Lipase 118 U/L (23-300); Potassium 4.3 mmoL/L (3.5-5.1); Sodium 135 mmol/L (136-145); Total Protein,Serum 7.7 g/dl (6.3-8.2)
[2025-08-30 16:13] LABS: Antinuclear Antibodies (ANA) Positive (Negative)
== END 2025-08-29 23:59 | disposition home or self-care (01) ==
PROVIDERS: PCP Nurse Practitioner Family; Visit Provider Nurse Practitioner Family
DX: K80.20 Calculus of gallbladder without cholecystitis without obstruction (principal); R76.89 Other specified abnormal immunological findings in serum
CPT/HCPCS: 36415; 76705; 80053; 82150; 83013; 83014; 83690; 84703; 85025; 86038